=== PATIENT | female | born 1985 | race Caucasian/White ===

== ENCOUNTER 2018-12-17 23:35 | Emergency (ER) | payer MEDICAID, OTHER ==
[~2018-12-17] VITALS: Ht 170.2 cm; Wt 151.1 kg
[2018-12-18 02:03] LABS: BASOPHILS % 0.8 % (0.0-2.0); EOSINOPHILS % 1.2 % (0.0-5.0); HEMATOCRIT. 34.2 % (36.0-48.0); HEMOGLOBIN. 11.3 g/dL (12.0-16.0); LYMPHOCYTES % 20.9 % (20.0-50.0); MEAN CORPUSCULAR HEMOGLOBIN 26.2 pg (28.0-32.0); MEAN CORPUSCULAR VOLUME 79.6 fL (81.0-99.0); MEAN PLATELET VOLUME 8.8 fl (7.4-10.4); MONOCYTES % 5.8 % (2.0-8.0); NEUTROPHILS % 71.3 % (40.0-76.0); PLATELET 226 x1000/uL (130-400); RED CELL DISTRIBUTION WIDTH 16.2 % (11.6-14.6)
[2018-12-18 02:13] LABS: CLARITY URINE CLOUDY (CLEAR); COLOR URINE ORANGE (YELLOW); KETONES URINE NEGATIVE (NEGATIVE); LEUKOCYTE ESTERASE URINE 3+ (NEGATIVE); NITRITE URINE NEGATIVE (NEGATIVE); OCCULT BLOOD URINE 3+ (NEGATIVE); PROTEIN URINE 1+ (NEGATIVE); SPECIFIC GRAVITY URINE 1.019 (1.005-1.030)
[2018-12-18 02:13] LABS: CHLORIDE 105 mEq/L (98-107)
[2018-12-18 02:36] LABS: B-HCG QUANTITATIVE 15053 mIU/mL (<3)
[2018-12-18] MEDS ORDERED: RHO(D) IMMUNE GLOBULIN 300 MCG/SYR IM NR (04:00)
[2018-12-18 06:30] VITALS: BP 124/77
== END 2018-12-18 06:51 | disposition home or self-care (01) ==
LOC: ER 23:35
DX: O46.8X1 Other antepartum hemorrhage, first trimester (principal); O36.0910 Maternal care for other rhesus isoimmunization, first trimester, not applicable or unspecified; O16.1 Unspecified maternal hypertension, first trimester; Z3A.01 Less than 8 weeks gestation of pregnancy; Z98.890 Other specified postprocedural states
CPT/HCPCS: 36415; 36430; 76801; 81003; 81025; 84702; 86850; 86900; 90384; 96372; 99285

== ENCOUNTER 2019-08-04 08:53 | Inpatient (IN) | payer MEDICAID ==
[~2019-08-04] VITALS: Ht 170.2 cm; Wt 156.0 kg
[2019-08-04] MEDS ORDERED: FISH GT (09:37)
[2019-08-04] MEDS ORDERED: PNV1TABL76 PO (09:37)
[2019-08-04] MEDS ORDERED: LEVO25TA7 PO (09:37)
[2019-08-04] MEDS ORDERED: FERR325T6 PO (09:37)
[2019-08-04] MEDS ORDERED: METF-816 PO (09:37)
[2019-08-04] MEDS ORDERED: LIDOCAINE HCL 1% 20ML VIAL (Pyxis) INJ INFIL SCH (10:15)
[2019-08-04] MEDS ORDERED: RHO(D) IMMUNE GLOBULIN 300 MCG/SYR IM ONE (10:15)
[2019-08-04] MEDS: LACTATED RINGERS 1,000 ML IV SCH ×3 (10:27→23:00)
[2019-08-04 10:44] LABS: CLARITY URINE CLEAR (CLEAR); COLOR URINE DARK YELLOW (YELLOW); KETONES URINE TRACE (NEGATIVE); LEUKOCYTE ESTERASE URINE 2+ (NEGATIVE); NITRITE URINE NEGATIVE (NEGATIVE); OCCULT BLOOD URINE NEGATIVE (NEGATIVE); PROTEIN URINE 1+ (NEGATIVE); SPECIFIC GRAVITY URINE 1.026 (1.005-1.030)
[2019-08-04 10:45] LABS: BASOPHILS % 0.6 % (0.0-2.0); EOSINOPHILS % 0.6 % (0.0-5.0); HEMATOCRIT. 37.9 % (36.0-48.0); HEMOGLOBIN. 12.6 g/dL (12.0-16.0); LYMPHOCYTES % 16.3 % (20.0-50.0); MEAN PLATELET VOLUME 10.1 fl (7.4-10.4); MONOCYTES % 7.2 % (2.0-8.0); NEUTROPHILS % 75.3 % (40.0-76.0); PLATELET 231 x1000/uL (130-400); RED BLOOD CELL COUNT 4.51 mill/uL (4.2-5.4)
[2019-08-04 10:50] LABS: CHLORIDE 106 mEq/L (98-107)
[2019-08-04 10:51] LABS: INR 0.9; PARTIAL THROMBOPLASTIN TIME 28.2 sec (23.4-31.0); PROTHROMBIN TIME 9.7 sec (9.6-11.0)
[2019-08-04 11:34] LABS: *AMPHETAMINES SCREEN URINE NEGATIVE (NEGATIVE); *BARBITURATES SCREEN URINE NEGATIVE (NEGATIVE); *BENZODIAZEPINES SCREEN URINE NEGATIVE (NEGATIVE); *COCAINE SCREEN URINE NEGATIVE (NEGATIVE)
[2019-08-04 11:35] LABS: CANNABINOID URINE SCREEN NEGATIVE (NEGATIVE); METHADONE URINE SCREEN NEGATIVE (NEGATIVE); OPIATES URINE SCREEN NEGATIVE (NEGATIVE); PHENCYCLIDINE URINE SCREEN NEGATIVE (NEGATIVE)
[2019-08-04 12:26] LABS: HEPATITIS B SURFACE ANTIGEN NEGATIVE
[2019-08-04] MEDS: DEXT 5%/LR + PITOCIN 20UNITS/L 1,000 ML IV SCH (12:37)
[2019-08-04] MEDS ORDERED: ROPIVACAINE HCL/PF EPIDURAL 200 ML EPI SCH (13:30)
[2019-08-05] MEDS: LACTATED RINGERS 1,000 ML IV SCH ×3 (06:49→21:20)
[2019-08-05] MEDS ORDERED: ACETAMINOPHEN 325MG TABLET PO ONE (23:00)
[2019-08-06] MEDS: LACTATED RINGERS 1,000 ML IV SCH (00:24)
[2019-08-06] MEDS: DEXT 5%/LR + PITOCIN 20UNITS/L 1,000 ML IV SCH ×2 (01:17→03:17)
[2019-08-06] MEDS ORDERED: AMPICILLIN 2,000 MG in SODIUM CHLORIDE 0.9% 100 ML IV SCH ×2 (02:00→03:00)
[2019-08-06] MEDS ORDERED: DEXT 5%/LR + PITOCIN 20UNITS/L 1,000 ML IV SCH (02:20)
[2019-08-06] MEDS ORDERED: BENZOCAINE/LANOLIN/ALOE VERA SPRAY TOP PRN (02:30)
[2019-08-06] MEDS ORDERED: IBUPROFEN 400MG TABLET PO PRN (02:30)
[2019-08-06] MEDS ORDERED: DIPHENHYDRAMINE 25MG CAPSULE PO PRN (02:30)
[2019-08-06] MEDS ORDERED: BISACODYL 10MG SUPP PR PRN (02:30)
[2019-08-06] MEDS ORDERED: LANOLIN OINT 7GM TUBE TOP PRN (02:30)
[2019-08-06] MEDS ORDERED: ACETAMINOPHEN WITH CODEINE 300/30MG TABLET PO PRN (02:30)
[2019-08-06] MEDS ORDERED: GLYCERIN/WITCH HAZEL LEAF MEDICATED PAD TOP PRN (02:30)
[2019-08-06] MEDS ORDERED: HEMORRHOIDAL SUPP PR PRN (02:30)
[2019-08-06 04:15] VITALS: BP 128/66
[2019-08-06] MEDS: IBUPROFEN 800MG TABLET PO PRN ×2 (05:05→17:56)
[2019-08-06 05:15] VITALS: BP 120/68
[2019-08-06] MEDS: AMPICILLIN 2,000 MG in SODIUM CHLORIDE 0.9% 100 ML IV SCH ×3 (06:25→20:59)
[2019-08-06] MEDS: LEVOTHYROXINE SODIUM 50MCG TABLET PO SCH (07:12)
[2019-08-06 10:00] VITALS: BP 130/55
[2019-08-06] MEDS: PRENATAL VIT/FE FUMARATE/FA TABLET PO SCH (13:11)
[2019-08-06 17:00] VITALS: BP 144/88
[2019-08-06 19:30] VITALS: BP 135/69
[2019-08-06] MEDS: MAGNESIUM/ALUMINUM HYDROXIDE/SIMETHICONE 30ML UDC PO SCH (20:41)
[2019-08-06] MEDS: DOCUSATE SODIUM 100MG CAPSULE PO SCH (20:41)
[2019-08-06] MEDS: SIMETHICONE 80MG TABLET CHEW PO SCH (20:42)
[2019-08-06 23:45] VITALS: BP 130/70
[2019-08-07] MEDS: AMPICILLIN 2,000 MG in SODIUM CHLORIDE 0.9% 100 ML IV SCH ×2 (03:00→06:31)
[2019-08-07] MEDS: LEVOTHYROXINE SODIUM 50MCG TABLET PO SCH (06:32)
[2019-08-07 06:57] LABS: BASOPHILS % 0.2 % (0.0-2.0); EOSINOPHILS % 1.6 % (0.0-5.0); HEMATOCRIT. 33.1 % (36.0-48.0); HEMOGLOBIN. 10.9 g/dL (12.0-16.0); MEAN CORPUSCULAR HEMOGLOBIN 27.7 pg (28.0-32.0); MEAN CORPUSCULAR VOLUME 84.2 fL (81.0-99.0); MONOCYTES % 4.8 % (2.0-8.0); NEUTROPHILS % 79.4 % (40.0-76.0); PLATELET 174 x1000/uL (130-400); RED BLOOD CELL COUNT 3.92 mill/uL (4.2-5.4); RED CELL DISTRIBUTION WIDTH 16.4 % (11.6-14.6)
[2019-08-07 08:55] VITALS: BP 134/52
[2019-08-07] MEDS: FERROUS SULFATE 325MG TABLET PO SCH (09:35)
[2019-08-07] MEDS: MAGNESIUM/ALUMINUM HYDROXIDE/SIMETHICONE 30ML UDC PO SCH (09:35)
[2019-08-07] MEDS: SIMETHICONE 80MG TABLET CHEW PO SCH (09:35)
[2019-08-07] MEDS: PRENATAL VIT/FE FUMARATE/FA TABLET PO SCH (09:35)
[2019-08-07 12:45] VITALS: BP 132/66
[2019-08-07 17:30] VITALS: BP 118/64
[2019-08-07 20:00] VITALS: BP 127/68
[2019-08-07] MEDS: DOCUSATE SODIUM 100MG CAPSULE PO SCH (21:11)
[2019-08-08 04:00] VITALS: BP 132/64
[2019-08-08 07:53] VITALS: BP 113/61
[2019-08-08] MEDS: MAGNESIUM/ALUMINUM HYDROXIDE/SIMETHICONE 30ML UDC PO SCH (07:57)
[2019-08-08] MEDS: FERROUS SULFATE 325MG TABLET PO SCH (07:57)
[2019-08-08] MEDS: LEVOTHYROXINE SODIUM 50MCG TABLET PO SCH (07:57)
[2019-08-08] MEDS: SIMETHICONE 80MG TABLET CHEW PO SCH (07:57)
[2019-08-08] MEDS: PRENATAL VIT/FE FUMARATE/FA TABLET PO SCH (07:57)
== END 2019-08-08 12:25 | disposition home or self-care (01) | DRG 560 ==
LOC: 8 EST LDRP 08:53 → OBSVTOIN 08:53 → 8 EST LDRP 09:23 → 8EST 08-06 05:08
PROVIDERS: ADMIT Obstetrics & Gynecology; ATTEND Obstetrics & Gynecology
PROC: 10E0XZZ Delivery of Products of Conception, External Approach (ICD-10-PCS; principal; 2019-08-04)
PROC: 0KQM0ZZ Repair Perineum Muscle, Open Approach (ICD-10-PCS; 2019-08-04)
PROC: 10907ZC Drainage of Amniotic Fluid, Therapeutic from Products of Conception, Via Natural or Artificial Opening (ICD-10-PCS; 2019-08-04)
PROC: 3E0R3BZ Introduction of Anesthetic Agent into Spinal Canal, Percutaneous Approach (ICD-10-PCS; 2019-08-04)
PROC: 00HU33Z Insertion of Infusion Device into Spinal Canal, Percutaneous Approach (ICD-10-PCS; 2019-08-04)
PROC: 30233S1 Transfusion of Nonautologous Globulin into Peripheral Vein, Percutaneous Approach (ICD-10-PCS; 2019-08-08)
DX: O36.63X0 Maternal care for excessive fetal growth, third trimester, not applicable or unspecified (principal); O70.1 Second degree perineal laceration during delivery; O77.0 Labor and delivery complicated by meconium in amniotic fluid; Z37.0 Single live birth; Z3A.39 39 weeks gestation of pregnancy
CPT/HCPCS: 36415; 76805; 76818; 80053; 80305; 81003; 82962; 85025; 86592; 86703; 86762; 86850; 86886; 86900; 87340; 90384; 99281; G0378; J0290; J2590; J2795; J7050

== ENCOUNTER 2023-07-20 14:13 | Emergency (ER) | payer OTHER ==
[~2023-07-20] VITALS: Ht 170.2 cm; Wt 137.0 kg
[~2023-07-20 14:13] MED LIST: FERR325T6 PO; LEVO25TA7 PO; METF-874 PO; PNV1TABL76 PO
[2023-07-20 14:20] VITALS: O2SAT 99
[2023-07-20 14:52] LABS: BASOPHILS % 0.6 % (0.0-2.0); DIFFERENTIAL COMMENT 0; EOSINOPHILS % 1.3 % (0.0-5.0); HEMATOCRIT. 37.8 % (36.0-48.0); HEMOGLOBIN. 12.3 g/dL (12.0-16.0); LYMPHOCYTES % 19.3 % (20.0-50.0); MEAN CORPUSCULAR HEMOGLOBIN 25.1 pg (28.0-32.0); MEAN CORPUSCULAR HGB CONC 32.6 g/dL (31.0-37.0); MEAN CORPUSCULAR VOLUME 77.1 fL (81.0-99.0); MEAN PLATELET VOLUME 8.5 fl (7.4-10.4); MONOCYTES % 6.5 % (2.0-8.0); NEUTROPHILS % 72.3 % (40.0-76.0); PLATELET 252 x1000/uL (130-400); RED BLOOD CELL COUNT 4.91 mill/uL (4.2-5.4); RED CELL DISTRIBUTION WIDTH 16.5 % (11.6-14.6); WHITE BLOOD COUNT 8.9 x1000/uL (4.5-11.0)
[2023-07-20 15:12] LABS: ALANINE AMINOTRANSFERASE 11 IU/L (10-49); ALBUMIN 4.8 g/dL (3.2-4.8); ASPARTATE AMINOTRANSFERASE 13 IU/L (<34); BILIRUBIN TOTAL 0.5 mg/dL (0.1-1.0); CARBON DIOXIDE 27 mEq/L (21-32); CHLORIDE 106 mEq/L (98-107); CREATININE 0.9 mg/dL (0.6-1.0); GLUCOSE 102 mg/dL (70-105); POTASSIUM 3.8 mEq/L (3.5-5.1); PROTEIN TOTAL 8.7 g/dL (6.0-8.3); SODIUM 139 mEq/L (136-145); UREA NITROGEN BLOOD 14 mg/dL (9-23)
[2023-07-20 15:16] LABS: B-HCG QUANTITATIVE 2 mIU/mL (<3)
[2023-07-20 16:58] LABS: CLARITY URINE CLOUDY (CLEAR); COLOR URINE ORANGE (YELLOW); GLUCOSE URINE NEGATIVE (NEGATIVE); KETONES URINE TRACE (NEGATIVE); LEUKOCYTE ESTERASE URINE 1+ (NEGATIVE); NITRITE URINE NEGATIVE (NEGATIVE); OCCULT BLOOD URINE 3+ (NEGATIVE); PROTEIN URINE 1+ (NEGATIVE); SPECIFIC GRAVITY URINE 1.033 (1.005-1.030)
[2023-07-20] MEDS: RHO(D) IMMUNE GLOBULIN 300 MCG/SYR IM ONE (17:15)
[2023-07-20 17:34] LABS: BACTERIA URINE TRACE; CALCIUM OXALATE CRYSTALS URINE 1+ /lpf; RBC URINE TNTC /hpf (0-2); SQUAMOUS EPITHELIAL CELL URINE RARE /lpf (RARE/1+); WBC URINE 0-2 /hpf (0-2)
[2023-07-20 18:28] VITALS: BP 148/92; PULSE 100; RESP 18; TEMP 98.2
== END 2023-07-20 18:31 | disposition home or self-care (01) ==
LOC: ER 14:13
DX: O46.91 Antepartum hemorrhage, unspecified, first trimester (principal); Z3A.01 Less than 8 weeks gestation of pregnancy
CPT/HCPCS: 36415; 76830; 76856; 80053; 81003; 84702; 85025; 86850; 86900; 90384; 96372; 99285; J2791

== ENCOUNTER 2023-07-28 18:42 | Emergency (ER) | payer OTHER ==
[~2023-07-28] VITALS: Ht 175.3 cm; Wt 138.0 kg
[2023-07-28 18:50] VITALS: BP 128/78; PULSE 113; RESP 18; TEMP 98.2; O2SAT 100
[2023-07-28] MEDS ORDERED: ACETAMINOPHEN 325MG TABLET PO ONE (21:30)
[2023-07-28] MEDS ORDERED: IBUP-2030 MT (22:59)
[2023-07-28 23:03] LABS: CLARITY URINE TURBID (CLEAR); COLOR URINE YELLOW (YELLOW); GLUCOSE URINE NEGATIVE (NEGATIVE); KETONES URINE NEGATIVE (NEGATIVE); LEUKOCYTE ESTERASE URINE 2+ (NEGATIVE); NITRITE URINE NEGATIVE (NEGATIVE); OCCULT BLOOD URINE 2+ (NEGATIVE); PH URINE 5.5 (4.5-8.0); PROTEIN URINE 1+ (NEGATIVE); SPECIFIC GRAVITY URINE 1.028 (1.005-1.030)
[2023-07-28 23:23] LABS: BACTERIA URINE 3+; SQUAMOUS EPITHELIAL CELL URINE 3+ /lpf (RARE/1+)
[2023-07-28] MEDS ORDERED: ACETAMINOPHEN 500MG TABLET PO NR (23:30)
[2023-07-28] MEDS ORDERED: CEPH500C2 MT (23:38)
== END 2023-07-29 03:13 | disposition home or self-care (01) ==
LOC: ER 19:37
DX: N84.0 Polyp of corpus uteri (principal)
CPT/HCPCS: 36415; 76830; 76856; 81003; 84702; 99284